=== PATIENT | male | born 2000 ===

== ENCOUNTER 2020-05-06 16:28 | Emergency (ER) | payer OTHER ==
[~2020-05-06] VITALS: Ht 165.1 cm; Wt 72.1 kg
== END 2020-05-06 17:50 | disposition home or self-care (01) ==
LOC: EMR PED 16:28 → ER 16:44 → EMR PED 17:50
DX: S61.421A Laceration with foreign body of right hand, initial encounter (principal); W25.XXXA Contact with sharp glass, initial encounter; Y93.89 Activity, other specified; Y92.69 Other specified industrial and construction area as the place of occurrence of the external cause; Y99.8 Other external cause status